=== PATIENT | male | born 1960 | race Two or more races ===

== ENCOUNTER 2021-02-16 00:37 | Emergency (ER) | payer MEDICAID ==
[~2021-02-16] VITALS: Ht 167.6 cm; Wt 79.4 kg
[~2021-02-16 00:37] MED LIST: NORPTMEDS CO
[2021-02-16 07:52] VITALS: BP 139/85
== END 2021-02-16 06:15 | disposition home or self-care (01) ==
LOC: ER 00:37
DX: M13.862 Other specified arthritis, left knee (principal)
CPT/HCPCS: 73562